=== PATIENT | male | born 1940 | race Caucasian/White ===

== ENCOUNTER → 2022-12-09 17:53 | Outpatient (CLI) | payer MEDICARE, OTHER, SELFPAY ==
--- NOTE | 2022-12-09 18:02 | DI.RAD.S_ITS ---
PROCEDURE: XR THORACIC SPINE 3V INDICATIONS: Back pain TECHNIQUE: 3 views of the thoracic spine were acquired. COMPARISON: None. FINDINGS: Bones: Diffusely decreased osseous mineralization. Posterior spinal fixation hardware extending from the upper thoracic spine into the lumbar spine and out of field of view. S shaped scoliosis. Multilevel thoracic vertebral body compression deformities, most pronounced at T7 with approximately 50% height loss. Soft tissues: No paravertebral stripe thickening. IMPRESSION: 1. Posterior spinal fixation hardware in place. The hardware appears intact. 2. Diffusely decreased osseous mineralization with multilevel compression deformities of the thoracic spine, most pronounced at T7 of uncertain chronicity. Dictated by: Stone Gore M.D. on 12/10/2022 at 8:52 Approved by: Stone Gore M.D. on 12/10/2022 at 8:59
--- NOTE | 2022-12-09 18:02 | DI.RAD.S_ITS ---
PROCEDURE: XR LUMBAR SPINE 2-3V INDICATIONS: Back pain TECHNIQUE: 3 views of the lumbar spine were acquired. COMPARISON: None. FINDINGS: Bones: Scoliotic curvature to the lumbar spine status post posterior spinal fixation. The hardware appears intact. There is diffusely decreased osseous mineralization which limits evaluation. Multilevel degenerative changes of the lumbar spine. Mild height loss of the L5 vertebral body without definite compression deformity. Bilateral hip arthroplasties. Soft tissues: Overlying bowel gas pattern is normal. No suspicious soft tissue calcifications. IMPRESSION: Scoliotic curvature to the lumbar spine status post posterior spinal fixation. The hardware appears intact. No definite compression deformity is seen. There is mild height loss of the L5 vertebral body without endplate irregularity or signs of acute compression fracture. Dictated by: Stone Gore M.D. on 12/10/2022 at 8:59 Approved by: Stone Gore M.D. on 12/10/2022 at 9:12
== END ==
PROVIDERS: Referring Provider Nurse Practitioner Family; Visit Provider Nurse Practitioner Family
DX: M43.8X4 Other specified deforming dorsopathies, thoracic region (principal); M54.9 Dorsalgia, unspecified; M41.9 Scoliosis, unspecified; Z98.1 Arthrodesis status
CPT/HCPCS: 72072; 72100

== ENCOUNTER → 2024-12-22 15:25 | Outpatient (CLI) | payer MEDICARE, OTHER, SELFPAY | PROVIDERS: Visit Provider Nurse Practitioner Family | DX: R30.0 Dysuria (principal) | CPT/HCPCS: 87086 ==

== ENCOUNTER 2024-12-22 15:59 | Emergency (ER) | payer MEDICARE, OTHER, SELFPAY ==
[2024-12-22] VITALS (8 sets, daily range): BP systolic 134–170; BP diastolic 63–87; PULSE 62–74; RESP 17–26; TEMP 37; O2SAT 95–100; BMI 26.6
--- NOTE | 2024-12-22 16:16 | ED.ABDPAIN ---
HPI - Abdominal Pain <Ismael Enrique, DO - Last Filed: 12/22/24 22:29> General Chief Complaint: Abdominal Pain Stated Complaint: Abnornal labs, sent by walk in for CT Time Seen by Provider: 12/22/24 16:10 Source: patient Mode of arrival: Ambulatory History of Present Illness HPI narrative: 84-year-old gentleman history of diverticulitis, CABGx2, hyponatremia, presents with left lower quadrant pain for the last 2-3 days progressively getting worse feels like his diverticulitis flare-up again. Patient denies nausea vomiting diarrhea bloody stools hematuria but subjective fever but no chills or body aches. Patient denies chest pain, shortness breath, cough, runny nose, sore throat. Other than what is stated 14 point review of systems negative. Related Data Home Medications ?Medication ?Instructions ?Recorded ?Confirmed atorvastatin 40 mg tablet 40 mg PO DAILY 12/09/22 12/22/24 eplerenone 25 mg tablet 25 mg PO DAILY 12/09/22 12/22/24 hydralazine 50 mg tablet 50 mg PO BID 12/09/22 12/22/24 lisinopril 20 mg tablet 20 mg PO BID 12/09/22 12/22/24 Previous Rx's ?Medication ?Instructions ?Recorded ciprofloxacin HCl 500 mg tablet 500 mg PO BID 10 days #20 tabs 12/22/24 (Cipro) metronidazole 500 mg tablet 500 mg PO Q8H 10 days #30 tabs 12/22/24 Allergies Allergy/AdvReac Type Severity Reaction Status Date / Time No Known Drug Allergies Allergy Verified 12/22/24 16:03 Review of Systems <Ismael Enrique, DO - Last Filed: 12/22/24 22:29> Review of Systems ROS Unobtainable: All systems reviewed & are unremarkable except as noted in HPI and below Patient History <Ismael Enrique, DO - Last Filed: 12/22/24 22:29> Social History Smoking Status: Never smoker Smoking Status: Never smoker Exam <Ismael Enrique DO - Last Filed: 12/22/24 22:29> Narrative Exam Narrative: GENERAL: [84] year old patient appears stated age. Well-developed patient, in mild distress. HEAD: Atraumatic. Normocephalic. EYES: Pupils equal round and reactive. Extraocular motions intact. No scleral icterus. No injection or drainage. ENT: Nose without bleeding, purulent drainage. Throat without erythema, tonsillar hypertrophy or exudate. Airway patent. NECK: Trachea midline. Non tender CARDIOVASCULAR: Regular rate and rhythm without murmurs, gallops, or rubs. RESPIRATORY: Clear to auscultation. Breath sounds equal bilaterally. No wheezes, rales, or rhonchi. GASTROINTESTINAL: Abdomen soft, LLQ TTP nondistended. EXTREMITIES: No edema or joint tenderness. BACK: Nontender without deformity or crepitance. No flank tenderness. NEURO: AOx3. SKIN: No rash or erythema of visible areas Initial Vital Signs Initial Vital Signs: Vital Signs Temperature 98.6 F 12/22/24 16:03 Pulse Rate 68 12/22/24 16:03 Respiratory Rate 20 12/22/24 16:03 Blood Pressure 134/65 12/22/24 16:03 Pulse Oximetry 100 12/22/24 16:03 Oxygen Delivery Method Room Air 12/22/24 16:03 <Jl Andrade, DO - Last Filed: 12/22/24 19:00> Initial Vital Signs Initial Vital Signs: Vital Signs Temperature 98.6 F 12/22/24 16:03 Pulse Rate 68 12/22/24 16:03 Respiratory Rate 20 12/22/24 16:03 Blood Pressure 134/65 12/22/24 16:03 Pulse Oximetry 100 12/22/24 16:03 Oxygen Delivery Method Room Air 12/22/24 16:03 Course <Ismael Enrique, DO - Last Filed: 12/22/24 22:29> Orders Ordered: ED Orders 12/22/24 16:12 EKG-12 Lead Stat 12/22/24 16:22 CT abdomen pelvis w con Stat 12/22/24 16:40 Complete Blood Count AUTO DIFF Stat Comprehensive Metabolic Panel Stat Lipase Stat Troponin I Stat Ondansetron HCl (Ondansetron 4 Mg/2 Ml Inj) 4 mg IV NOW PRN PRN Reason: Nausea And Vomiting Ondansetron HCl (Ondansetron 4 Mg Odt) 4 mg PO NOW PRN PRN Reason: Nausea And Vomiting Discontinued Medications Lactated Ringer's (Lactated Ringers) 1,000 mls @ 1,000 mls/hr IV BOLUS ONE Stop: 12/22/24 17:58 Last Infusion: 12/22/24 18:30 Dose: Infused Documented By: Admin: 12/22/24 17:06 Dose: 1,000 mls/hr Documented By: EMELY Ciprofloxacin (Cipro) 400 mg in 200 mls @ 200 mls/hr IV NOW ONE Stop: 12/22/24 18:51 Last Infusion: 12/22/24 19:36 Dose: Infused Documented By: Admin: 12/22/24 18:26 Dose: 200 mls/hr Documented By: PRIMO Metronidazole (Flagyl) 500 mg in 100 mls @ 100 mls/hr IV NOW ONE Stop: 12/22/24 18:51 Last Admin: 12/22/24 19:38 Dose: 100 mls/hr Documented By: EMELY Vital Signs Vital signs: Vital Signs - 8 hr 12/22/24 16:03 12/22/24 17:46 12/22/24 18:25 Temperature 98.6 F Pulse Rate 68 65 66 Respiratory Rate 20 17 23 Blood Pressure 134/65 139/63 170/80 H Pulse Oximetry 100 96 97 Oxygen Delivery Method Room Air Room Air 12/22/24 18:30 12/22/24 19:00 12/22/24 19:30 Temperature Pulse Rate 67 65 63 Respiratory Rate 24 17 19 Blood Pressure 165/80 H 165/78 H 150/73 H Pulse Oximetry 95 97 97 Oxygen Delivery Method Room Air Room Air 12/22/24 20:00 12/22/24 20:30 Temperature Pulse Rate 74 62 Respiratory Rate 26 H 18 Blood Pressure 159/87 H 153/73 H Pulse Oximetry 97 Oxygen Delivery Method Room Air <Jl Andrade, - Last Filed: 12/22/24 19:00> Orders Ordered: ED Orders 12/22/24 16:12 EKG-12 Lead Stat 12/22/24 16:22 CT abdomen pelvis w con Stat 12/22/24 16:40 Complete Blood Count AUTO DIFF Stat Comprehensive Metabolic Panel Stat Lipase Stat Troponin I Stat Ondansetron HCl (Ondansetron 4 Mg/2 Ml Inj) 4 mg IV NOW PRN PRN Reason: Nausea And Vomiting Ondansetron HCl (Ondansetron 4 Mg Odt) 4 mg PO NOW PRN PRN Reason: Nausea And Vomiting Discontinued Medications Lactated Ringer's (Lactated Ringers) 1,000 mls @ 1,000 mls/hr IV BOLUS ONE Stop: 12/22/24 17:58 Last Infusion: 12/22/24 18:30 Dose: Infused Documented By: Admin: 12/22/24 17:06 Dose: 1,000 mls/hr Documented By: EMELY Ciprofloxacin (Cipro) 400 mg in 200 mls @ 200 mls/hr IV NOW ONE Stop: 12/22/24 18:51 Last Infusion: 12/22/24 19:36 Dose: Infused Documented By: Admin: 12/22/24 18:26 Dose: 200 mls/hr Documented By: PRIMO Metronidazole (Flagyl) 500 mg in 100 mls @ 100 mls/hr IV NOW ONE Stop: 12/22/24 18:51 Last Admin: 12/22/24 19:38 Dose: 100 mls/hr Documented By: EMELY Vital Signs Vital signs: Vital Signs - 8 hr 12/22/24 16:03 12/22/24 17:46 12/22/24 18:25 Temperature 98.6 F Pulse Rate 68 65 66 Respiratory Rate 20 17 23 Blood Pressure 134/65 139/63 170/80 H Pulse Oximetry 100 96 97 Oxygen Delivery Method Room Air Room Air 12/22/24 18:30 12/22/24 19:00 12/22/24 19:30 Temperature Pulse Rate 67 65 63 Respiratory Rate 24 17 19 Blood Pressure 165/80 H 165/78 H 150/73 H Pulse Oximetry 95 97 97 Oxygen Delivery Method Room Air Room Air 12/22/24 20:00 12/22/24 20:30 Temperature Pulse Rate 74 62 Respiratory Rate 26 H 18 Blood Pressure 159/87 H 153/73 H Pulse Oximetry 97 Oxygen Delivery Method Room Air MDM - Abdominal Pain <Ismael Enrique, - Last Filed: 12/22/24 22:29> Lab Data 12/22/24 16:40 12/22/24 16:40 Labs: Lab Results 12/22/24 Range/Units 16:40 WBC 11.7 H (4.5-11.0) X10^3/uL RBC 3.97 L (4.5-5.9) X10^6/uL Hgb 13.7 (13.5-17.5) g/dL Hct 39.5 L (41-53) % MCV 99.6 (80-100) fL MCH 34.5 H (26-34) PG MCHC 34.6 (30-36) % RDW 13.4 (11.6-14.8) % Plt Count 226 (150-400) X10^3/uL Neut % (Auto) 85.3 H (50-75) % Lymph % (Auto) 3.6 L (25-40) % Creek % (Auto) 10.3 (3-14) % Eos % (Auto) 0.1 L (2-4) % Baso % (Auto) 0.7 (0-2) % Neut # (Auto) 56874 H (7875-6963) /uL Lymph # (Auto) 400 L (0460-7622) /uL Creek # (Auto) 1200 H (0-900) /uL Eos # (Auto) 0 (0-450) /uL Baso # (Auto) 100 (0-100) /uL Sodium 125 L (137-145) mmol/L Potassium 4.5 (3.4-5.1) mmol/L Chloride 93 L (98-107) mmol/L Carbon Dioxide 27 (22-32) mmol/L BUN 14 (9-20) mg/dL Creatinine 0.67 (0.66-1.25) mg/dL Estimated GFR > 60 (>60) mL/min BUN/Creatinine Ratio 20.9 (6-22) Glucose 105 H (70-99) mg/dL Calcium 9.0 (8.4-10.2) mg/dL Total Bilirubin 0.8 (0.2-1.3) mg/dL AST 36 (17-59) IU/L ALT 34 (<50) IU/L Alkaline Phosphatase 73 (38-126) U/L Troponin I < 0.012 (0.01-0.034) ng/mL Total Protein 6.5 (6.3-8.2) g/dL Albumin 3.9 (3.5-5.0) g/dL Globulin 2.6 (1.7-4.1) g/dL Albumin/Globulin Ratio 1.5 (1.0-2.8) Lipase 122 (23-300) U/L Imaging Data CT scan - abdomen/pelvis: Radiologist's Impression: [address] [address] [address] Scan Report Signed Patient: Mirza Her MR#: [id number] : 1940 Acct:[id number] Age/Sex: 84 / M Date of Service: 12/22/24 Loc: ED Accession Number: [id number] Procedure: CT abdomen pelvis w con Ordering Provider: Ismael Enrique D.O. PROCEDURE: CT ABDOMEN PELVIS W CON INDICATIONS: abd pain TECHNIQUE: After the administration of intravenous contrast, axial sections acquired from the lung bases to the pubic symphysis. Coronal and sagittal reformats were performed. For radiation dose reduction, the following was used: automated exposure control, adjustment of mA and/or kV according to patient size. COMPARISON: [facility], CR, XR LUMBAR SPINE 2-3V, 12/09/2022, 18:10. FINDINGS: Image quality: There is artifact associated with the metallic hardware. Artifact from the metallic hardware is reduced by metal reconstruction algorithm. Lower Chest: No significant findings. ABDOMEN: Liver: No solid mass. Gallbladder: No radiopaque gallstones or wall thickening. Biliary ducts: No biliary dilation. Pancreas: No ductal dilation. Spleen: Size is within normal limits. Adrenal Glands: No adrenal nodules. Kidneys and Ureters: No hydronephrosis. No solid mass. No complex renal cystic lesion which requires follow up. Bowel and peritoneum: Moderate to prominent wall thickening can be seen involving the sigmoid colon, with surrounding inflammatory change. Diverticula formation can be seen within this region. There is a prominent diverticulum versus contained perforation on series 2, image 81 and on series 3, image 42, measuring 13 mm. Mild generalized free fluid can be seen in the left lower quadrant of the abdomen. No praveen fluid-filled abscess is seen. The more proximal colon is within normal limits. No dilated loops of small bowel are seen. Ventral Wall: There is a oztx-[id number]-[id number] fat containing periumbilical hernia. Abdominal Nodes: No retroperitoneal or mesenteric adenopathy by size criteria. Vessels: Aorta and inferior vena cava are normal in size. PELVIS: Pelvic Organs: Unremarkable. Bladder: No bladder wall thickening, accounting for underdistention. Pelvic Nodes: No enlarged lymph nodes. Miscellaneous: No inguinal hernias are seen. Bones: Extensive spinal fixation hardware is seen. Bilateral hip arthroplasty hardware can be seen. There is moderate dextroconvex thoracolumbar scoliosis. IMPRESSION: Extensive diverticulitis. There is a large diverticulum versus contained perforation seen adjacent to the sigmoid colon. No praveen fluid-filled abscess can be seen. When clinically appropriate (following adequate treatment of the patient's current clinical episode) a colonoscopy is recommended for further evaluation for a potential underlying mass (if not already recently done). Additional findings: Gjly-pa-otdshisg fat containing periumbilical hernia Extensive spinal postoperative hardware Medical hip arthroplasty hardware Dictated by: Mj Alcala M.D. on 12/22/2024 at 16:13 Approved by: Mj Alcala M.D. on 12/22/2024 at 16:17 MDM Narrative Medical decision making narrative: Vital signs, nurse triage note, medication list, previous ER visits, and all imaging studies reviewed. WBC 11.7 sodium 125 potassium 4.5 chloride 93 BUN 14 creatinine 0.67 glucose [address] abdomen and pelvis showed extensive diverticulitis there is a large diverticulum versus contained perforation seen adjacent to the sigmoid colon. No praveen fluid filled abscess can be seen. Case discussed with Dr. Singletary who will be coming by to see patient in the ER. <Jl Andrade, DO - Last Filed: 12/22/24 19:00> Lab Data Labs: Lab Results 12/22/24 Range/Units 16:40 WBC 11.7 H (4.5-11.0) X10^3/uL RBC 3.97 L (4.5-5.9) X10^6/uL Hgb 13.7 (13.5-17.5) g/dL Hct 39.5 L (41-53) % MCV 99.6 (80-100) fL MCH 34.5 H (26-34) PG MCHC 34.6 (30-36) % RDW 13.4 (11.6-14.8) % Plt Count 226 (150-400) X10^3/uL Neut % (Auto) 85.3 H (50-75) % Lymph % (Auto) 3.6 L (25-40) % Creek % (Auto) 10.3 (3-14) % Eos % (Auto) 0.1 L (2-4) % Baso % (Auto) 0.7 (0-2) % Neut # (Auto) 31959 H (6282-1169) /uL Lymph # (Auto) 400 L (8505-8556) /uL Creek # (Auto) 1200 H (0-900) /uL Eos # (Auto) 0 (0-450) /uL Baso # (Auto) 100 (0-100) /uL Sodium 125 L (137-145) mmol/L Potassium 4.5 (3.4-5.1) mmol/L Chloride 93 L (98-107) mmol/L Carbon Dioxide 27 (22-32) mmol/L BUN 14 (9-20) mg/dL Creatinine 0.67 (0.66-1.25) mg/dL Estimated GFR > 60 (>60) mL/min BUN/Creatinine Ratio 20.9 (6-22) Glucose 105 H (70-99) mg/dL Calcium 9.0 (8.4-10.2) mg/dL Total Bilirubin 0.8 (0.2-1.3) mg/dL AST 36 (17-59) IU/L ALT 34 (<50) IU/L Alkaline Phosphatase 73 (38-126) U/L Troponin I < 0.012 (0.01-0.034) ng/mL Total Protein 6.5 (6.3-8.2) g/dL Albumin 3.9 (3.5-5.0) g/dL Globulin 2.6 (1.7-4.1) g/dL Albumin/Globulin Ratio 1.5 (1.0-2.8) Lipase 122 (23-300) U/L [facility] Narrative Medical decision making narrative: Vital signs, nurse triage note, medication list, previous ER visits, and all imaging studies reviewed. WBC 11.7 sodium 125 potassium 4.5 chloride 93 BUN 14 creatinine 0.67 glucose [address] abdomen and pelvis showed extensive diverticulitis there is a large diverticulum versus contained perforation seen adjacent to the sigmoid colon. No praveen fluid filled abscess can be seen. Case discussed with Dr. Singletary who will be coming by to see patient in the ER. Patient was signed out to me by Dr. Enrique, patient found to have diverticula with contained perforation, was evaluated by General surgery Dr. Singletary, who recommended admission however patient refusing, therefore patient will leave against medical advice will be started on oral antibiotics and instructed to follow up if patient have worsening symptoms. Return precautions given verbalized understanding of this and understands and agrees that he will be leaving against medical advice Discharge Plan Departure Patient Disposition: Left Against Medical Advice Clinical Impression: Diverticulitis Instructions: DI for Diverticulitis Activity Restrictions/Additional Instructions: Please return immediately to the emergency department if your symptoms get worse We have discussed and explained the clinical examination, laboratory results, and imaging studies so far with the patient, both with full medical disclosure and layman's terms. The patient is an adult and is of sound mind. The patient appears to have intact insight, judgement and reason. Is alert and oriented x4. The patient is clinically sober and appears free from any distracting injury. The patient verbalized understanding. Despite incomplete workup the patient expresses a wish to leave. We have explained to the patient that leaving now would be leaving against medical advice. We have explained that leaving against medical advice without a complete workup and/or identification of pathology may lead to worsening of symptoms and even the possibility of disability or . The patient understands that the only way to safely avoid this is to complete the workup as leaving the grounds of the hospital would be leaving the care of trained remote medical coder, specialists, and resources that were available to the patient. We have expressed the need for the patient to stay in the hospital, considering the constellation of symptoms of breath the patient here. Despite this lengthy conversation the patient still expresses desire to leave against medical advice and demonstrates a full capacity to make their own medical decisions. We have informed the patient to call 911 or to seek immediate medical attention at their nearest emergency department if there are symptoms were to worsen/or change their mind. Prescriptions: New ciprofloxacin HCl [Cipro] 500 mg tablet 500 mg PO BID 10 Days Qty: 20 0RF metronidazole 500 mg tablet 500 mg PO Q8H 10 Days Qty: 30 0RF No Action hydralazine 50 mg tablet 50 mg PO BID lisinopril 20 mg tablet 20 mg PO BID atorvastatin 40 mg tablet 40 mg PO DAILY eplerenone 25 mg tablet 25 mg PO DAILY Referrals: Miscellaneous,Doctor, MD [Primary Care Provider, Medical] Stand Alone Forms: Patient Portal/API, Against Med. Advice (Greenlandic)
--- NOTE | 2024-12-22 16:22 | DI.CT.S_ITS ---
PROCEDURE: CT ABDOMEN PELVIS W CON INDICATIONS: abd pain TECHNIQUE: After the administration of intravenous contrast, axial sections acquired from the lung bases to the pubic symphysis. Coronal and sagittal reformats were performed. For radiation dose reduction, the following was used: automated exposure control, adjustment of mA and/or kV according to patient size. COMPARISON: [facility], CR, XR LUMBAR SPINE 2-3V, 12/09/2022, 18:10. FINDINGS: Image quality: There is artifact associated with the metallic hardware. Artifact from the metallic hardware is reduced by metal reconstruction algorithm. Lower Chest: No significant findings. ABDOMEN: Liver: No solid mass. Gallbladder: No radiopaque gallstones or wall thickening. Biliary ducts: No biliary dilation. Pancreas: No ductal dilation. Spleen: Size is within normal limits. Adrenal Glands: No adrenal nodules. Kidneys and Ureters: No hydronephrosis. No solid mass. No complex renal cystic lesion which requires follow up. Bowel and peritoneum: Moderate to prominent wall thickening can be seen involving the sigmoid colon, with surrounding inflammatory change. Diverticula formation can be seen within this region. There is a prominent diverticulum versus contained perforation on series 2, image 81 and on series 3, image 42, measuring 13 mm. Mild generalized free fluid can be seen in the left lower quadrant of the abdomen. No praveen fluid-filled abscess is seen. The more proximal colon is within normal limits. No dilated loops of small bowel are seen. Ventral Wall: There is a myix-vo-sigetkes fat containing periumbilical hernia. Abdominal Nodes: No retroperitoneal or mesenteric adenopathy by size criteria. Vessels: Aorta and inferior vena cava are normal in size. PELVIS: Pelvic Organs: Unremarkable. Bladder: No bladder wall thickening, accounting for underdistention. Pelvic Nodes: No enlarged lymph nodes. Miscellaneous: No inguinal hernias are seen. Bones: Extensive spinal fixation hardware is seen. Bilateral hip arthroplasty hardware can be seen. There is moderate dextroconvex thoracolumbar scoliosis. IMPRESSION: Extensive diverticulitis. There is a large diverticulum versus contained perforation seen adjacent to the sigmoid colon. No praveen fluid-filled abscess can be seen. When clinically appropriate (following adequate treatment of the patient's current clinical episode) a colonoscopy is recommended for further evaluation for a potential underlying mass (if not already recently done). Additional findings: Bcno-qx-trpmckcw fat containing periumbilical hernia Extensive spinal postoperative hardware Medical hip arthroplasty hardware Dictated by: Mj Alcala M.D. on 12/22/2024 at 16:13 Approved by: Mj Alcala M.D. on 12/22/2024 at 16:17
--- NOTE | 2024-12-22 16:23 | EKG_ITS ---
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
[2024-12-22 16:49] LABS: Add Manual Diff / Slide Review NO; Hematocrit 39.5 % (41-53); Hemoglobin 13.7 g/dL (13.5-17.5); Lymphocytes Absolute Auto 400 /uL (1100-4500); Mean Corpuscular HGB Conc 34.6 % (30-36); Mean Corpuscular Hemoglobin 34.5 PG (26-34); Mean Corpuscular Volume 99.6 fL (80-100); Platelet Count 226 X10^3/uL (150-400)
[2024-12-22 17:00] LABS: Alanine Aminotransferase 34 IU/L (<50); Albumin 3.9 g/dL (3.5-5.0); Albumin Globulin Ratio 1.5 (1.0-2.8); Alkaline Phosphatase 73 U/L (38-126); Blood Urea Nitrogen 14 mg/dL (9-20); Calcium 9.0 mg/dL (8.4-10.2); Carbon Dioxide 27 mmol/L (22-32); Chloride 93 mmol/L (98-107); Estimated Glomerular Filt Rate > 60 mL/min (>60); Globulin 2.6 g/dL (1.7-4.1); Glucose 105 mg/dL (70-99); HEMOLYSIS 22 (0-50); Lipase 122 U/L (23-300); Potassium 4.5 mmol/L (3.4-5.1); Sodium 125 mmol/L (137-145); Total Protein 6.5 g/dL (6.3-8.2)
[2024-12-22] MEDS: LACTATED RINGERS 1,000 ML 1000 ML IV (17:06)
[2024-12-22 17:12] LABS: Troponin I < 0.012 ng/mL (0.01-0.034)
[2024-12-22] MEDS: CIPROFLOXACIN 400 MG/200 ML PIGGYBACK 200 MG IV (18:26)
--- NOTE | 2024-12-22 18:50 | PM.HP.IH.1 ---
History of Present Illness History of Present Illness Date Patient Seen: 12/22/24 Time Patient Seen: 06:30 Date of Onset of Symptoms: 12/19/24 Chief complaint: Abnornal labs, sent by walk in for CT Narrative: Patient is a 84-year-old white male presents to the emergency room from a walk-in clinic with left lower quadrant pain of 3 days' duration. The patient denies any nausea vomiting diarrhea states he had a maximum temperature at home was 99.4 had a normal bowel movement this morning states he has had diverticulitis in the past. Patient has been eating lots of popcorn lately. Underwent a CT scan showing a normal gallbladder absent appendix diverticulosis with some [id number] diverticulitis of the sigmoid colon no abscesses noted no signs of perforations mall umbilical hernia degenerative joint disease with extensive back surgery with Mcleod rods x4 with right and left hips. WBC is 11.7 hemoglobin is 13.7 hematocrit is 39.5 platelets are 226,000 sodium is 125 potassium is 4.5 chloride is 93 bicarb is 27 BUN of 14 creatinine 0.67 random blood sugar is 105 normal LFTs lipase is 122 troponin is less than 0.012. Allergies: NKDA Medications: Atorvastatin, hydralazine, lisinopril, aspirin 81 mg,eplerenone Past medical history: Corrective lenses, hypertension, hyperlipidemia, atherosclerotic vascular disease with coronary artery disease without [place], degenerative joint disease with severe scoliosis treated with multiple surgeries and Mcleod rods, diverticulitis diverticulosis history. History of colon polyps. Patient denies any other heart lungs digestive musculoskeletal neurological seizure disorder psychiatric problems risks of Infectious diseases HIV or AIDS. Past surgical history: Appendectomy 1985, CABG x1, back surgery x4 with Mcleod rods x4, right and left total hips, right and left inguinal hernias, multiple colonoscopies last with polypectomy in 2018. Social history: Denies any tobacco recreational drug usage has 1-2 ruth per day. Vitals: Temperature is 98.6? pulse is 65 respirations 17 BP is 139/63 pulse ox is 96% on room air. Patient is 5 ft 6 in tall 165 lb. Head is normocephalic eyes PERRLA EOMI is intact nares are clear oropharyngeal cavity is in moderate repair heart regular rate and rhythm without murmurs. Lungs clear to auscultation diminished in the bases no rales rhonchi or wheezes noted. Abdomen is soft nondistended negative Richard's Marcos's Meng- Mittal's Martin's McBurney's patient has some left lower quadrant tenderness but no gross rebound or guarding. Musculoskeletal moderate muscle tone and strength equal bilaterally no gross deficits elicited. Impression: Left lower quadrant pain of [address] scan showing mild to moderate diverticulitis without any free air perforation or abscess. Hypertension Hyperlipidemia Atherosclerotic vascular disease with coronary artery disease without [place], status post CABG Severe degenerative joint disease with severe scoliosis treated with back surgery x4 Mcleod rods x4 WBC 11.7 Plan: Discussed with patient the findings discussed diverticular disease and its complications and need for surgery. Discussed with the patient being admitted in the hospital for IV antibiotics and pain control. Patient refuses admission desires only and have oral antibiotics and to go home he desires no narcotics. Discussed with the patient diverticulitis and need to avoid seeds nuts popcorn hulls which he has been eating popcorn every night. Also discussed dietary fiber needs 25-35 g of fiber a day may supplement with MiraLax and increased dietary water. Patient has any worsening symptoms or problems returned to the emergency room for re-evaluation. All questions are answered to patient's satisfaction. Return if any problems questions or concerns. PFSH Social History Smoking Status: Never smoker Meds Home Medications and Allergies Home Medications ?Medication ?Instructions ?Recorded ?Confirmed ?Type atorvastatin 40 mg tablet 40 mg PO DAILY 12/09/22 12/22/24 History eplerenone 25 mg tablet 25 mg PO DAILY 12/09/22 12/22/24 History hydralazine 50 mg tablet 50 mg PO BID 12/09/22 12/22/24 History lisinopril 20 mg tablet 20 mg PO BID 12/09/22 12/22/24 History ciprofloxacin HCl 500 mg tablet 500 mg PO BID 10 days #20 tabs 12/22/24 Rx (Cipro) metronidazole 500 mg tablet 500 mg PO Q8H 10 days #30 tabs 12/22/24 Rx Allergies Allergy/AdvReac Type Severity Reaction Status Date / Time No Known Drug Allergies Allergy Verified 12/22/24 16:03 Exam Vital Signs (past 8 hours): - 12/22/24 16:03 12/22/24 17:46 12/22/24 18:25 Temperature 98.6 F Pulse Rate 68 65 66 Respiratory Rate 20 17 23 Blood Pressure 134/65 139/63 170/80 H Pulse Oximetry 100 96 97 Oxygen Delivery Method Room Air Room Air 12/22/24 18:30 Temperature Pulse Rate 67 Respiratory Rate 24 Blood Pressure 165/80 H Pulse Oximetry 95 Oxygen Delivery Method Room Air Oxygen Delivery Method Room Air Objective Labs 12/22/24 16:40 12/22/24 16:40 Labs: Laboratory Results - last 24 hr 12/22/24 16:40 WBC 11.7 H RBC 3.97 L Hgb 13.7 Hct 39.5 L MCV 99.6 MCH 34.5 H MCHC 34.6 RDW 13.4 Plt Count 226 Neut % (Auto) 85.3 H Lymph % (Auto) 3.6 L [place] % (Auto) 10.3 Eos % (Auto) 0.1 L Baso % (Auto) 0.7 Neut # (Auto) 99686 H Lymph # (Auto) 400 L [place] # (Auto) 1200 H Eos # (Auto) 0 Baso # (Auto) 100 Sodium 125 L Potassium 4.5 Chloride 93 L Carbon Dioxide 27 BUN 14 Creatinine 0.67 Estimated GFR > 60 BUN/Creatinine Ratio 20.9 Glucose 105 H Calcium 9.0 Total Bilirubin 0.8 AST 36 ALT 34 Alkaline Phosphatase 73 Troponin I < 0.012 Total Protein 6.5 Albumin 3.9 Globulin 2.6 Albumin/Globulin Ratio 1.5 Lipase 122 Assessment & Plan Time-Based Coding :: [TOTAL MINUTES] spent with patient and on the chart (including review of chart, obtaining history, exam, reviewing outside data, placing orders, documenting exam and treatment plan, and counseling patient) on [DATE]. PROFEE Special Tax Auditor Document charge(s): Yes
[2024-12-22] MEDS: metroNIDAZOLE 500 MG/100 ML PIGGYBACK 100 MG IV (19:38)
== END 2024-12-22 20:40 | disposition left against medical advice (07) ==
PROVIDERS: Family Medicine; Emergency Provider Student in an Organized Health Care Education/Training Program
DX: K57.92 Diverticulitis of intestine, part unspecified, without perforation or abscess without bleeding (principal); R30.0 Dysuria
CPT/HCPCS: 36415; 74177; 80053; 81002; 83690; 84484; 85025; 87086; 93005; 96361; 96365; 96367; 99284; J0744; Q9967

== ENCOUNTER → 2024-12-26 10:35 | Outpatient (CLI) | payer MEDICARE, OTHER, SELFPAY ==
[2024-12-26 12:00] LABS: Hematocrit 38.8 % (41-53); Hemoglobin 13.3 g/dL (13.5-17.5); Mean Corpuscular HGB Conc 34.3 % (30-36); Mean Corpuscular Hemoglobin 34.2 PG (26-34); Mean Corpuscular Volume 99.6 fL (80-100); Platelet Count 241 X10^3/uL (150-400)
[2024-12-26 12:46] LABS: Blood Urea Nitrogen 4 mg/dL (9-20); Calcium 8.3 mg/dL (8.4-10.2); Carbon Dioxide 19 mmol/L (22-32); Chloride 95 mmol/L (98-107); Estimated Glomerular Filt Rate > 60 mL/min (>60); Glucose 82 mg/dL (70-99); HEMOLYSIS 18 (0-50); Potassium 4.6 mmol/L (3.4-5.1); Sodium 124 mmol/L (137-145)
== END ==
PROVIDERS: PCP Internal Medicine; Referring Provider Internal Medicine; Visit Provider Internal Medicine
DX: I10 Essential (primary) hypertension (principal); E87.1 Hypo-osmolality and hyponatremia; K57.92 Diverticulitis of intestine, part unspecified, without perforation or abscess without bleeding
CPT/HCPCS: 36415; 80048; 85027

== ENCOUNTER → 2024-12-31 15:04 | Outpatient (CLI) | payer MEDICARE, OTHER, SELFPAY ==
[2024-12-31 16:11] LABS: Blood Urea Nitrogen 11 mg/dL (9-20); Calcium 9.4 mg/dL (8.4-10.2); Carbon Dioxide 30 mmol/L (22-32); Chloride 94 mmol/L (98-107); Estimated Glomerular Filt Rate > 60 mL/min (>60); Glucose 121 mg/dL (70-99); HEMOLYSIS < 15 (0-50); Potassium 4.7 mmol/L (3.4-5.1); Sodium 131 mmol/L (137-145)
== END ==
PROVIDERS: PCP Internal Medicine; Referring Provider Internal Medicine; Visit Provider Internal Medicine
DX: E87.1 Hypo-osmolality and hyponatremia (principal)
CPT/HCPCS: 36415; 80048